=== PATIENT | female | born 1945 | race African-American/Black ===

== ENCOUNTER 2018-02-20 19:29 | Observation (INO) | payer MEDICARE ==
[~2018-02-20] VITALS: Ht 157.5 cm; Wt 74.4 kg
--- NOTE | 2018-02-20 20:10 | PHYS DOC ---
Past History Past Medical History: Hyperthyroid Past Surgical History: No Surgical History Alcohol Use: None Drug Use: None Adult General Chief Complaint Chief Complaint: MECHANICAL FALL HPI HPI 72-year-old female presents after episode of syncope and fall at home. The patient was sleepy and laying her head on the counter. Another family member woke her up and the patient stood up to go to the couch. The last thing she remembers is feeling sleepy. She then awoke and the paramedics were arriving. Family states that the patient passed out after she stood up and hit the left side of her head when she fell onto the floor. She also landed on her left shoulder. At this time the patient has a 2 cm laceration of the left supraorbital area and some left shoulder pain. She is still able to move her arm , but has pain with abduction greater than 80. She denies any other complaints or pain at this time. Review of Systems Review of Systems Constitutional: Denies fever or chills [] Eyes: Denies change in visual acuity, redness, or eye pain [] HENT: Denies nasal congestion or sore throat [] Respiratory: Denies cough or shortness of breath [] Cardiovascular: No additional information not addressed in HPI [] GI: Denies abdominal pain, nausea, vomiting, bloody stools or diarrhea [] : Denies dysuria or hematuria [] Musculoskeletal: Left shoulder pain[] Integument: Left forehead laceration[] Neurologic: Syncope. Denies headache, focal weakness or sensory changes [] Endocrine: Denies polyuria or polydipsia [] All other systems were reviewed and found to be within normal limits, except as documented in this note. Physical Exam Physical Exam Constitutional: Well developed, well nourished, no acute distress, non-toxic appearance. [] HENT: Normocephalic, atraumatic, bilateral external ears normal, oropharynx moist, no oral exudates, nose normal. [] Eyes: PERRLA, EOMI, conjunctiva normal, no discharge. [] Neck: Normal range of motion, no tenderness, supple, no stridor. [] Cardiovascular:Heart rate regular rhythm, no murmur [] Lungs & Thorax: Bilateral breath sounds clear to auscultation [] Abdomen: Bowel sounds normal, soft, no tenderness, no masses, no pulsatile masses. [] Skin: 2 cm linear laceration of the forehead above the left eye[] Back: No tenderness, no CVA tenderness. [] Extremities: Left shoulder pain with abduction greater than 80. No obvious deformity. [] Neurologic: Alert and oriented X 3, normal motor function, normal sensory function, no focal deficits noted. [] Psychologic: Affect normal, judgement normal, mood normal. [] Current Patient Data Vital Signs Vital Signs Date Time Temp Pulse Resp B/P (MAP) Pulse Ox O2 Delivery O2 Flow Rate FiO2 02/20/18 19:37 98.7 76 18 76 Room Air EKG EKG Sinus rhythm, rate 74, normal axis, no ST elevations or depressions.[] Radiology/Procedures Radiology/Procedures [] Impressions: CT HEAD INDICATION: Fall today, syncope, weakness COMPARISON: None Available. Exposure: One or more of the following individualized dose reduction techniques were utilized for this examination: 1. Automated exposure control 2. Adjustment of the mA and/or kV according to patient size 3. Use of iterative reconstruction technique TECHNIQUE: 5 mm contiguous axial images were obtained from the skull base to the vertex in both bone and soft tissue algorithm. FINDINGS: No abnormal attenuation within the brain parenchyma. No evidence of acute intracranial hemorrhage. No extra-axial fluid collections. No mass effect or midline shift. Ventricular size is appropriate. Basal cisterns are patent. No fractures identified.Garcia-white differentiation is preserved.Globes and orbits are within normal limits. Paranasal sinuses and mastoid air cells are clear. IMPRESSION: No acute intracranial findings. Electronically signed by: Prashant Sevilla MD (02/20/2018 8:45 PM) [facility] DICTATED AND SIGNED BY: PRASHANT SEVILLA MD DATE: 02/20/182041 CC: PARVEEN DIAZ DO; MARCIANO BYERS MD CHEST AP ONLY History: Fall today, left shoulder and chest pain Comparison: None. Findings: Single view of the chest is submitted. There is no infiltrate, pneumothorax, or effusion. The pericardial cardiac silhouette is within normal limits in size. There is distal left clavicle fracture. Impression: 1. There is distal left clavicle fracture. Electronically signed by: Joann Mansfield MD (02/20/2018 8:45 PM) [facility] DICTATED AND SIGNED BY: JOANN MANSFIELD MD DATE: 02/20/182043 CC: PARVEEN DIAZ DO; MARCIANO BYERS MD Examination: 2 views of the left shoulder HISTORY: History of fall, pain COMPARISON: None available FINDINGS: The humerus head is within the glenoid. Mild displaced fracture of the distal clavicle. IMPRESSION: Mild displaced fracture of the distal left clavicle. Electronically signed by: Prashant Sevilla MD (02/20/2018 8:48 PM) [facility] [place] [facility] [place] AND SIGNED BY: PRASHANT SEVILLA MD DATE: 02/20/182044 CC: PARVEEN DIAZ DO; MARCIANO BYERS MD Course & Med Decision Making Course & Med Decision Making Pertinent Labs and Imaging studies reviewed. (See chart for details) Patient's EKG is unremarkable. Her labs are significant for a low potassium of 2.8. We will replace it by IV. The patient also has a distal left clavicle fracture. I discussed this with orthopedics at [facility], Dr. Taylor and he was comfortable with the patient being admitted at [place] and then having outpatient follow-up for the clavicle fracture. I discussed the patient with Dr. Heart and he has accepted the patient admission to [facility] [place] to replace her potassium and further observation. Patient did have a small to suture a laceration of the head that was repaired with skin glue. See note for further details. [] Dragon Disclaimer Dragon Disclaimer This electronic medical record was generated, in whole or in part, using a voice recognition dictation system. Departure Departure: Referrals: MARCIANO BYERS MD (PCP) PARVEEN DIAZ DO Feb 20, 2018 20:10
[2018-02-20 20:24] LABS: BASO # 0.1 x10^3/uL (0.0-0.2); BASO % 1 % (0-3); EOS # 0.1 x10^3/uL (0.0-0.7); EOS % 1 % (0-3); HEMATOCRIT 39.5 % (36.0-47.0); HEMOGLOBIN 13.1 g/dL (12.0-15.5); LYMPH # 1.9 x10^3/uL (1.0-4.8); LYMPH % 32 % (24-48); MEAN CORPUSCULAR HEMOGLOBIN 31 pg (25-35); MEAN CORPUSCULAR HGB CONC 33 g/dL (31-37); MEAN CORPUSCULAR VOLUME 93 fL (79-100); MONO # 0.3 x10^3/uL (0.0-1.1); MONO % 5 % (0-9); NEUT # 3.7 x10^3uL (1.8-7.7); NEUT % 61 % (31-73); PLATELET COUNT 188 x10^3/uL (140-400); RED BLOOD COUNT 4.24 x10^6/uL (3.50-5.40); RED CELL DISTRIBUTION WIDTH 14.4 % (11.5-14.5)
[2018-02-20 20:37] LABS: ALBUMIN/GLOBULIN RATIO 1.2 (1.0-1.7); CALCIUM 8.9 mg/dL (8.5-10.1); CREATININE 1.2 mg/dL (0.6-1.0); GFR 53.6; TOTAL BILIRUBIN 0.4 mg/dL (0.2-1.0); TOTAL PROTEIN 7.3 g/dL (6.4-8.2)
[2018-02-20 20:38] LABS: POTASSIUM 2.8 mmol/L (3.5-5.1)
--- NOTE | 2018-02-20 20:49 | RAD ---
CHEST AP ONLY History: Fall today, left shoulder and chest pain Comparison: None. Findings: Single view of the chest is submitted. There is no infiltrate, pneumothorax, or effusion. The pericardial cardiac silhouette is within normal limits in size. There is distal left clavicle fracture. Impression: 1. There is distal left clavicle fracture. Electronically signed by: Ben Knox MD (02/20/2018 8:45 PM) [facility]
--- NOTE | 2018-02-20 20:49 | RAD ---
CT HEAD INDICATION: Fall today, syncope, weakness COMPARISON: None Available. Exposure: One or more of the following individualized dose reduction techniques were utilized for this examination: 1. Automated exposure control 2. Adjustment of the mA and/or kV according to patient size 3. Use of iterative reconstruction technique TECHNIQUE: 5 mm contiguous axial images were obtained from the skull base to the vertex in both bone and soft tissue algorithm. FINDINGS: No abnormal attenuation within the brain parenchyma. No evidence of acute intracranial hemorrhage. No extra-axial fluid collections. No mass effect or midline shift. Ventricular size is appropriate. Basal cisterns are patent. No fractures identified.Garcia-white differentiation is preserved.Globes and orbits are within normal limits. Paranasal sinuses and mastoid air cells are clear. IMPRESSION: No acute intracranial findings. Electronically signed by: Prashant Tesfaye MD (02/20/2018 8:45 PM) [facility] [place]
--- NOTE | 2018-02-20 20:51 | RAD ---
Examination: 2 views of the left shoulder HISTORY: History of fall, pain COMPARISON: None available FINDINGS: The humerus head is within the glenoid. Mild displaced fracture of the distal clavicle. IMPRESSION: Mild displaced fracture of the distal left clavicle. Electronically signed by: Prashant Tesfaye MD (02/20/2018 8:48 PM) [facility]
[2018-02-20] MEDS ORDERED: ONDANSETRON PF 4 MG/2 ML VIAL. IV ONE (21:15)
[2018-02-20] MEDS ORDERED: MORPHINE SULFATE 2 MG/ML DISP.SYRIN. IV ONE (21:15)
[2018-02-20] MEDS ORDERED: POTASSIUM CL 40MEQ IN 0.9%NACL 1,000 ML IV ONE (22:00)
[2018-02-20 23:05] VITALS: BP 113/75
[2018-02-20] MEDS ORDERED: ONDANSETRON PF 4 MG/2 ML VIAL. IV PRN ×2 (23:30)
[2018-02-20] MEDS ORDERED: MORPHINE SULFATE 2 MG/ML DISP.SYRIN. IV PRN (23:30)
[2018-02-20] MEDS: HYDROcodone/APAP 5/325MG 1 TAB TABLET PO PRN (23:58)
[2018-02-21] MEDS ORDERED: LEVO175T5 PO ×2 (00:16→13:44)
[2018-02-21 05:50] VITALS: BP 120/83
[2018-02-21 06:12] LABS: BASO % 0 % (0-3); EOS # 0.1 x10^3/uL (0.0-0.7); EOS % 1 % (0-3); HEMATOCRIT 37.4 % (36.0-47.0); HEMOGLOBIN 12.5 g/dL (12.0-15.5); LYMPH # 1.8 x10^3/uL (1.0-4.8); LYMPH % 28 % (24-48); MEAN CORPUSCULAR HEMOGLOBIN 31 pg (25-35); MEAN CORPUSCULAR HGB CONC 33 g/dL (31-37); MEAN CORPUSCULAR VOLUME 93 fL (79-100); MONO # 0.4 x10^3/uL (0.0-1.1); MONO % 6 % (0-9); NEUT % 64 % (31-73); PLATELET COUNT 159 x10^3/uL (140-400); RED BLOOD COUNT 4.03 x10^6/uL (3.50-5.40); RED CELL DISTRIBUTION WIDTH 13.9 % (11.5-14.5); WHITE BLOOD COUNT 6.3 x10^3/uL (4.0-11.0)
[2018-02-21 06:13] LABS: CALCIUM 8.5 mg/dL (8.5-10.1); CREATININE 0.9 mg/dL (0.6-1.0); GFR 74.7; POTASSIUM 3.7 mmol/L (3.5-5.1)
[2018-02-21] MEDS ORDERED: LEVOTHYROXINE 175 MCG TABLET PO SCH (10:00)
[2018-02-21] MEDS ORDERED: BUTALB/APAP/CAFEIN 50/325/40MG TABLET. PO PRN (10:00)
[2018-02-21 10:50] VITALS: BP 115/75
[2018-02-21] MEDS: HYDROcodone/APAP 5/325MG 1 TAB TABLET PO PRN (10:52)
[2018-02-21] MEDS ORDERED: HYDR-2758 PO (13:44)
[2018-02-21 15:44] VITALS: BP 115/81
--- NOTE | 2018-02-22 13:46 | EKG ---
[address] [address] Test Date: 2018-02-20 Test Time: 19:41:18 Pat Name: ADORE PETERS Department: Room: 123 A Gender: Icu Specialist: : [id number] Requested By: PARVEEN DIAZ Order Number: [id number] Reading MD: Aurelio Harden MD Measurements Intervals [place] Rate: P: MO: QRS: QRSD: T: QT: QTc: Interpretive Statements SR LOW VOLTAGE LIMB LEADS Electronically Signed On 02-24-2018 9:48:12 CDT by Aurelio Harden MD
--- NOTE | 2018-02-26 05:13 | DS ---
DATE OF DISCHARGE: 02/21/2018 HOSPITAL COURSE: This 72-year-old female came in through the Emergency Room. The patient apparently had an acute episode of syncope, fell landing on her head, hit her head against the counter, the patient woke up. Paramedics arrived, they noted that she passed out. She also injured her left shoulder. There was a 2 cm laceration to the left supraorbital area of the left shoulder. The patient was admitted. She was placed on a rule out ID protocol. CAT scans were done obviously of her head. She had mild displaced fracture of the distal left clavicle. CT of the head demonstrated no acute findings. The patient's chest x-ray was basically unremarkable except for the fracture. The patient was placed in a splint. The patient made good progress. Cardiac enzymes were negative. The patient's potassium was found to be extremely low at 2.8, probably responsible for her falling that was corrected. She made good progress during the rest of her hospitalization. She was discharged home. She will be followed up by the music library assistant to make further evaluation on her as indicated. She will be seeing Dr. Taylor as an outpatient for her fractured clavicle. IMPRESSION: Syncope, severe hypokalemia, elevated liver enzyme, AST, fracture of the left clavicle. History of hypothyroidism, tobacco abuse. The patient did receive PT, OT while here in the hospital. She refused home health. She was discharged home to follow up as an outpatient, make further evaluation on her as indicated. Regular diet. Decreased activity. No driving. MARCIANO BYERS MD DR: BEENA/roosevelt JOB#: [id number] / [id number]
--- NOTE | 2018-02-28 10:57 | SSS ---
ADMIT DATE: 02/21/2018 HOSPITAL COURSE: This 72-year-old female came in through the Emergency Room. The patient apparently had an acute episode of syncope, fell landing on her head, hit her head against the counter, the patient woke up. Paramedics arrived, they noted that she passed out. She also injured her left shoulder. There was a 2 cm laceration to the left supraorbital area of the left shoulder. The patient was admitted. She was placed on a rule out GA protocol. CAT scans were done obviously of her head. She had mild displaced fracture of the distal left clavicle. CT of the head demonstrated no acute findings. The patient's chest x-ray was basically unremarkable except for the fracture. The patient was placed in a splint. The patient made good progress. Cardiac enzymes were negative. The patient's potassium was found to be extremely low at 2.8, probably responsible for her falling that was corrected. She made good progress during the rest of her hospitalization. She was discharged home. She will be followed up by the arborer to make further evaluation on her as indicated. She will be seeing Dr. Taylor as an outpatient for her fractured clavicle. IMPRESSION: Syncope, severe hypokalemia, elevated liver enzyme, AST, fracture of the left clavicle. History of hypothyroidism, tobacco abuse. The patient did receive PT, OT while here in the hospital. She refused home health. She was discharged home to follow up as an outpatient, make further evaluation on her as indicated. Regular diet. Decreased activity. No driving. MARCIANO BYERS MD DR: BEENA/[place]osevelt JOB#: [id number] / [id number]
== END 2018-02-21 16:25 | disposition home or self-care (01) ==
LOC: ER 19:29 → 1 SOUTH 22:51 → INTOOBSV 22:51
PROVIDERS: ADMIT Family Medicine; ATTEND Family Medicine
DX: R55 Syncope and collapse (principal); E87.6 Hypokalemia; E03.9 Hypothyroidism, unspecified; S42.032A Displaced fracture of lateral end of left clavicle, initial encounter for closed fracture; W18.30XA Fall on same level, unspecified, initial encounter; Y92.009 Unspecified place in unspecified non-institutional (private) residence as the place of occurrence of the external cause; Y93.89 Activity, other specified; Y99.8 Other external cause status; Z87.891 Personal history of nicotine dependence
CPT/HCPCS: 12011; 36415; 70450; 71045; 73030; 80048; 80053; 83735; 84484; 85025; 93005; 96365; 96366; 96375; 97161; 97165; 99285; G0378; G8978; G8979; G8987; G8988; G8989; J2270; J2405; G0379